=== PATIENT | male | born 1990 | race Caucasian/White ===

== ENCOUNTER 2016-09-08 02:52 | Emergency (ER) | payer OTHER ==
[~2016-09-08] VITALS: Ht 182.9 cm; Wt 127.3 kg
--- NOTE | ~2016-09-08 | CR72 ---
[facility]. [facility] A Service of [facility] & [facility] RADIOLOGY TEXT RESULTS PATIENT: AVA PERALTA LOCATION: SED : [birth year] UNIT #: [id number] AGE: [address]: Lee Brown DO SEX: M ORDER DR: [id number] [place] [id number] E MR#: [id number] Acc #: [id number] NAME: AVA PERALTA : 1990 SEX: M STUDY DATE/TIME: 09/08/2016 03:22 UNIT: SED ROOM: STUDY DESCRIPTION: CR Chest Single View Portable Attending Physician: Lee Brown Ordering Physician: Lee Brown Primary Care Physician: Elizabeth Benitez M.D. MEDICAL IMAGING REPORT This report is preliminary unless electronic signature is present. EXAM Portable chest 09/08/2016 at 0322 INDICATION Heart palpitations tonight. Current smoker. COMPARISON 07/17/2015 FINDINGS A single AP portable view of the chest shows both lungs to be clear. The heart is normal in size. The mediastinal contour is normal. No significant bone abnormalities are seen. IMPRESSION Normal portable chest. Dictated by... Akira Sheth Jr., M.D. THIS IS AN ELECTRONICALLY VERIFIED REPORT Akira Sheth Jr., M.D. at 09/08/2016 9:23 PM YANIV/nikkie TD: 09/08/2016 15:23 JOB #: [id number] MEDICAL IMAGING REPORT Page 1 of 1
--- NOTE | ~2016-09-08 | EKG ---
PATIENT: AVA PERALTA UNIT #: [id number] Ventricular Rate: 68 BPM Atrial Rate: 68 BPM P-R Interval: 146 ms QRS Duration: 88 ms Q-T Interval: 386 ms QTC Calculation(Bezet): 410 ms P [place]: 22 degrees Calculated R [place]: 49 degrees Calculated T [place]: 27 degrees Diagnosis Line: Sinus rhythm with sinus arrhythmia with occasional Diagnosis Line: Premature ventricular complexes Diagnosis Line: Otherwise normal ECG Diagnosis Line: When compared with ECG of 17-JUL-2015 14:11, Diagnosis Line: Premature ventricular complexes are now Present Diagnosis Line: Confirmed by ROME VERA MD ([id number]) on Diagnosis Line: 09/12/2016 3:51:53 PM INTERPRETING MD: JOSH
[~2016-09-08 02:52] MED LIST: ASPIRIN81 MG; FLEXERIL10 M1 PO; HUMALOG MIX 75/10 ML SUBQ; IBUPROFEN; LIPITOR20 MG; MOTRIN20 MG/ML PO
[2016-09-08] MEDS ORDERED: HUMALOG100 UNIT/2 (03:09)
[2016-09-08] MEDS ORDERED: LEVEMIR100 UNITS/ (03:09)
[2016-09-08 03:21] LABS: BASOPHIL# 0.1 X10e3 (0-0.3); BASOPHIL% 1.4 % (0-2.5); EOSINOPHIL# 0.3 X10e3 (0-0.7); EOSINOPHIL% 3.3 % (0.0-7.0); LYMPHOCYTE# 3.8 X10e3 (1.0-3.5); LYMPHOCYTE% 42.5 % (17.0-45.0); MEAN CORPUSCULAR HEMOGLOBIN 28.7 PG (28-34); MEAN CORPUSCULAR HGB CONC 33.4 g/dL (30-36); MEAN PLATELET VOLUME 7.9 FL (6.5-11.5); MONOCYTE# 0.5 X10e3 (0-1.0); MONOCYTE% 6.2 % (3.0-12.0); NEUTROPHIL# 4.1 X10e3 (1.5-7.1); NEUTROPHIL% 46.6 % (40-75); PLATELET COUNT 232 X10e3 (140-420); RED BLOOD COUNT 5.23 X10e (3.90-5.60); RED CELL DISTRIBUTION WIDTH 13.2 % (11.0-15.5); WHITE BLOOD COUNT 8.9 X10e3 (4.0-10.5)
[2016-09-08 03:23] LABS: DIFF IND NO
[2016-09-08 03:37] LABS: ALBUMIN SERUM 3.9 g/dL (3.5-5.0); BILIRUBIN, DIRECT 0.1 mg/dL (0.0-0.2); BILIRUBIN,INDIRECT 0.4 mg/dL (0.0-0.9); BILIRUBIN,TOTAL 0.5 mg/dL (0.2-2.0); CALCIUM SERUM 8.9 mg/dL (8.4-10.2); GLOM FILT RATE Estimated 103.4 mL/min (>60); POTASSIUM 3.4 mmol/L (3.5-5.1); PROTEIN TOTAL SERUM 6.8 g/dL (6.0-8.3)
[2016-09-08 03:38] LABS: POC - CKMB <1.0 ng/mL (0.0-7.9)
[2016-09-08 03:39] LABS: POC - TROPONIN <0.05 ng/mL (<=0.05)
[2016-09-08 04:00] LABS: URINE SOURCE CLEAN CATCH
[2016-09-08 04:03] LABS: URINE APPEARANCE CLEAR; URINE BILIRUBIN NEG (NEG); URINE BLOOD NEG (NEG); URINE COLOR YELLOW; URINE GLUCOSE NEG (NORM); URINE KETONE NEG (NEG); URINE LEUKOCYTE ESTERASE NEG (NEG); URINE NITRATE NEG (NEG); URINE PH 5.5 (5-8); URINE PROTEIN TRACE (NEG); URINE SPECIFIC GRAVITY >=1.030 (1.003-1.035)
[2016-09-08 04:04] LABS: MICRO INDICATED? NO
[2016-09-08 04:17] LABS: AMPHETAMINE NEG (NEG); BARBITURATES NEG (NEG); BENZODIAZEPINES NEG (NEG); COCAINE NEG (NEG); MARIJUANA NEG (NEG); OPIATES NEG (NEG); TRICYCLIC ANTIDEPRESSANTS NEG (NEG); U METHADONE NEG (NEG)
[2016-11-12] MEDS ORDERED: HUMALOG100 UNIT/1 (10:15)
[2016-11-12] MEDS ORDERED: TRESIBA FL100 UNIT/1 (10:16)
[2016-11-12] MEDS ORDERED: ZESTRIL5 MG PO (10:17)
[2016-11-12] MEDS ORDERED: METOPROLOL TAR25 MG (10:17)
[2016-11-12] MEDS ORDERED: ASPIRIN81 M2 PO (10:19)
== END 2016-09-08 04:19 | disposition home or self-care (01) ==
LOC: SED 02:52
PROVIDERS: Emergency Medicine
DX: R00.2 Palpitations (principal); E87.6 Hypokalemia; F41.9 Anxiety disorder, unspecified; F17.210 Nicotine dependence, cigarettes, uncomplicated
CPT/HCPCS: 36415; 71010; 80048; 80076; 80307; 81003; 82553; 84484; 85025; 93005; 96360; 99285

== ENCOUNTER → 2016-09-17 | Outpatient (CLI) | payer OTHER ==
[~2016-09-17] MED LIST changes: +ASPIRIN81 M2 PO; +HUMALOG100 UNIT/1; +HUMALOG100 UNIT/2; +LEVEMIR100 UNITS/; +METOPROLOL TAR25 MG; +TRESIBA FL100 UNIT/1; +ZESTRIL5 MG PO
--- NOTE | ~2016-09-17 | HM ---
Unit #: [id number] #: [id number] Patient: AVA PERALTA [id number] [address] [address] [id number] O MR#: [id number] NAME: AVA PERALTA. : 1990 SEX: M STUDY DATE/TIME: 09/17/2016 UNIT: CE ROOM: STUDY DESCRIPTION: Holter Monitor Attending Physician: Juve Betts Referring Physician: Juve Betts Primary Care Physician: Elizabeth Benitez M.D. CARDIOLOGY REPORT EXAM Holter Monitor DATE APPLIED 09/17/2016 DATE SCANNED 09/26/[address] Benitez READ BY Ventura Lugo M.D. INDICATION Chest pain and palpitations. COMMENTS 1. Underlying rhythm is normal sinus. Slowest recorded heart rate is 44 beats per minute, maximum recorded heart rate is 130 beats per minute. There is an average heart rate of 83 beats per minute. 2. Frequent isolated premature ventricular contractions are noted. There were 5743 isolated PVCs and 50 premature ventricular couplets. There were no runs of ventricular tachycardia. 3. Rare premature atrial contractions are seen with a total of 838 beats in 24 hours with 14 premature atrial couplets. There were no periods of significant bradycardia, AV cory block, sinus arrest or sinus pause. 4. Patient did not report any symptoms or activity diary. IMPRESSION 1. Abnormal 24 hour Holter monitor shows frequent premature ventricular contractions, mostly isolated with rare couplets and rare premature atrial contractions. 2. No significant bradyarrhythmia, AV cory block, sinus arrest or sinus pause. Dictated by... Ventura Lugo M.D. Unit #: [id number] #: [id number] Patient: AVA PERALTA CARLOS/kranthi TD: 09/28/2016 08:09 JOB #: [id number] CARDIOLOGY REPORT Page 1 of 1 X Ventura Lugo MD HOLTER MONITOR REPORT
== END | disposition home or self-care (01) ==
LOC: CEKG 08:48
DX: R07.9 Chest pain, unspecified (principal); R00.2 Palpitations; R94.39 Abnormal result of other cardiovascular function study; I49.3 Ventricular premature depolarization; I49.1 Atrial premature depolarization
CPT/HCPCS: 93225; 93226